=== PATIENT | male | born 1975 | race Caucasian/White ===

== ENCOUNTER 2022-04-22 06:22 | Observation (INO) ==
[2022-04-22] MEDS ORDERED: Famotidine 20 MG TABLET PO ONE (06:30)
[2022-04-22] MEDS ORDERED: *HR* OxyCODONE Immed Rel 5 MG TABLET PO ONE (06:30)
[2022-04-22] MEDS ORDERED: CeFAZolin Syr 2,000MG/20 ML 2,000 MG/20 ML SYRINGE IVPB ONE (06:46)
[2022-04-22] MEDS ORDERED: *HR* FentaNYL (PF) 100 MCG/2 ML VIAL ONE (07:02)
[2022-04-22] MEDS ORDERED: *HR* Succinylcholine 200 MG/10 ML VIAL IVP ONE (07:02)
[2022-04-22] MEDS ORDERED: *HR* Rocuronium Bromide 50 MG/5 ML VIAL ONE (07:02)
[2022-04-22] MEDS ORDERED: Lidocaine -MPF 2% 2 ML VIAL ONE (07:02)
[2022-04-22] MEDS ORDERED: Ondansetron 4 MG/2 ML VIAL ONE (07:02)
[2022-04-22] MEDS ORDERED: *HR* Propofol 200 MG/20 ML VIAL IVP ONE (07:03)
[2022-04-22] MEDS ORDERED: *HR* Midazolam HCl 2 MG/2 ML VIAL ONE (07:03)
[2022-04-22] MEDS: Ringers Solution, Lactated 1,000 ML IVC SCH ×4 (07:08→23:38)
[2022-04-22] MEDS ORDERED: *HR* Remifentanil 2 MG VIAL IVP ONE (07:10)
[2022-04-22] MEDS ORDERED: *HR* Phenylephrine 10 MG/ML VIAL ONE (07:16)
[2022-04-22] MEDS ORDERED: EPHEDrine 50 MG/ML VIAL ONE (07:24)
[2022-04-22] MEDS ORDERED: Vancomycin 1,000 MG VIAL ONE (07:33)
[2022-04-22] MEDS ORDERED: Polymyxin B Sulfate 500,000 UNIT, Sodium Chloride IRRigation 1,000 ML IR ONE (07:45)
[2022-04-22] MEDS ORDERED: Sugammadex Sodium 200 MG/2 ML VIAL IV ONE (09:07)
[2022-04-22] MEDS ORDERED: *HR* Remifentanil 1 MG VIAL IVP ONE (10:29)
[2022-04-22] MEDS ORDERED: *HR* HYDROMORPHONE 2 MG/ML VIAL ONE (10:54)
[2022-04-22] MEDS ORDERED: Ondansetron 4 MG/2 ML VIAL IVP PRN ×2 (11:50→14:43)
[2022-04-22] MEDS: *HR* FentaNYL (PF) 100 MCG/2 ML VIAL IVP PRN ×4 (11:58→12:18)
[2022-04-22] MEDS: *HR* HYDROmorphone PF 0.5 MG/0.5 ML SYRINGE IVP PRN ×4 (12:23→12:39)
[2022-04-22] MEDS ORDERED: *HR* HYDROmorphone (PF) 1 MG/ML SYRINGE IVP ONE ×2 (12:50→13:28)
[2022-04-22] MEDS ORDERED: *HR* OxyCODONE Immed Rel 5 MG TABLET PO PRN (12:51)
[2022-04-22] MEDS ORDERED: tiZANidine 4 MG TABLET PO SCH (12:55)
[2022-04-22] MEDS ORDERED: Acetaminophen IV 1,000 MG/100 ML BAG IVPB ONE (12:55)
[2022-04-22] MEDS ORDERED: Pregabalin 75 MG CAPSULE PO ONE (12:55)
[2022-04-22] MEDS ORDERED: Naloxone 0.4 MG/ML INJ IVP PRN (14:43)
[2022-04-22] MEDS ORDERED: Gabapentin 300 MG CAPSULE PO SCH (15:00)
[2022-04-22] MEDS: *HR* HYDROcodone/Acet 5/325 mg TABLET PO PRN (16:37)
[2022-04-22] MEDS: CeFAZolin 2 GM/120 ML BAG IVPB SCH ×2 (16:38→23:37)
[2022-04-22] MEDS: Gabapentin 300 MG CAPSULE PO SCH (20:01)
[2022-04-22] MEDS: Acetaminophen 325 MG TABLET PO PRN (20:08)
[2022-04-22] MEDS: diazePAM 10 MG TABLET PO PRN (20:48)
[2022-04-22] MEDS: *HR* OxyCODONE Immed Rel 5 MG TABLET PO PRN (21:33)
[2022-04-22] MEDS: Temazepam 15 MG CAPSULE PO PRN (21:33)
[2022-04-22] MEDS: Ketorolac 30 MG/ML VIAL IVP PRN (21:34)
[2022-04-23] MEDS: *HR* HYDROcodone/Acet 5/325 mg TABLET PO PRN ×3 (02:33→19:00)
[2022-04-23] MEDS: Gabapentin 300 MG CAPSULE PO SCH ×3 (07:59→21:52)
[2022-04-23] MEDS: *HR* OxyCODONE Immed Rel 5 MG TABLET PO PRN ×4 (07:59→21:51)
[2022-04-23] MEDS: lisinopriL 20 MG TABLET PO SCH (08:00)
[2022-04-23] MEDS: hydroCHLOROthiazide 25 MG TABLET PO SCH (08:00)
[2022-04-23] MEDS: Ringers Solution, Lactated 1,000 ML IVC SCH (11:08)
[2022-04-23] MEDS: diazePAM 10 MG TABLET PO PRN ×2 (11:23→19:00)
[2022-04-23] MEDS: Ketorolac 30 MG/ML VIAL IVP PRN (11:23)
[2022-04-23] MEDS: Temazepam 15 MG CAPSULE PO PRN (23:52)
[2022-04-24] MEDS: diazePAM 10 MG TABLET PO PRN ×3 (03:13→21:36)
[2022-04-24] MEDS: *HR* OxyCODONE Immed Rel 5 MG TABLET PO PRN ×4 (03:13→20:03)
[2022-04-24] MEDS: *HR* HYDROcodone/Acet 5/325 mg TABLET PO PRN ×2 (06:25→18:24)
[2022-04-24] MEDS: Acetaminophen 325 MG TABLET PO PRN (07:42)
[2022-04-24] MEDS: Gabapentin 300 MG CAPSULE PO SCH ×3 (07:43→20:02)
[2022-04-24] MEDS: lisinopriL 20 MG TABLET PO SCH (07:43)
[2022-04-24] MEDS: hydroCHLOROthiazide 25 MG TABLET PO SCH (07:43)
[2022-04-24] MEDS: Ketorolac 30 MG/ML VIAL IVP PRN ×2 (11:26→21:36)
[2022-04-24 18:39] LABS: Basophils # 0.1 K/mcL (0.0-0.2); Basophils % 0.6 %; Eosinophils # 0.4 K/mcL (0.0-0.6); Eosinophils % 5.5 %; Hematocrit 35.7 % (37.5-50.1); Hemoglobin 11.5 g/dL (12.9-16.9); Immature Granulocytes % 0.3 % (0-4); Lymphocytes # 1.7 K/mcL (0.6-4.6); Lymphocytes % 21.7 %; Mean Corpuscular HGB Conc 32.2 g/dL (31.6-35.5); Mean Corpuscular Hemoglobin 29.7 pg (28.0-33.3); Mean Corpuscular Volume 92.2 fL (83.0-100.0); Mean Platelet Volume 9.5 fL (9.4-12.4); Monocytes % 12.8 %; Neutrophils # 4.6 K/mcL (1.6-8.9); Platelet Count 189 K/mcL (140-400); Red Blood Count 3.87 M/mcL (4.19-5.50); Red Cell Distribution Width 13.1 % (11.5-14.5); Segmented Neutrophils % 59.1 %; White Blood Count 7.8 K/mcL (4.3-11.1)
[2022-04-25] MEDS: *HR* OxyCODONE Immed Rel 5 MG TABLET PO PRN ×3 (01:53→14:51)
[2022-04-25] MEDS: Gabapentin 300 MG CAPSULE PO SCH ×2 (08:32→14:52)
[2022-04-25] MEDS: Ketorolac 30 MG/ML VIAL IVP PRN ×2 (08:33→16:30)
[2022-04-25 10:44] VITALS: TEMP 98.3; O2SAT 99
[2022-04-25] MEDS: hydroCHLOROthiazide 25 MG TABLET PO SCH (10:50)
[2022-04-25] MEDS: lisinopriL 20 MG TABLET PO SCH (10:50)
[2022-04-25] MEDS: *HR* HYDROcodone/Acet 5/325 mg TABLET PO PRN (10:50)
[2022-04-25 15:00] VITALS: BP 110/68; PULSE 88
== END 2022-04-25 16:45 | disposition home or self-care (01) ==
LOC: 4WAOSI 06:22 → SDCAOSI 06:22 → 4WAOSI 14:30
PROVIDERS: ADMIT Orthopaedic Surgery Orthopaedic Surgery of the Spine; ATTEND Orthopaedic Surgery Orthopaedic Surgery of the Spine